=== PATIENT | male | born 1985 | race Two or more races ===

== ENCOUNTER 2018-12-28 15:27 | Emergency (ER) | payer OTHER ==
[~2018-12-28] VITALS: Ht 175.3 cm; Wt 99.8 kg
== END 2018-12-28 17:04 | disposition home or self-care (01) ==
LOC: ER 15:27
DX: S81.822A Laceration with foreign body, left lower leg, initial encounter (principal); W45.8XXA Other foreign body or object entering through skin, initial encounter; Y93.89 Activity, other specified; Y92.832 Beach as the place of occurrence of the external cause; Y99.8 Other external cause status

== ENCOUNTER 2019-01-07 07:51 | Emergency (ER) | payer OTHER ==
[~2019-01-07] VITALS: Ht 175.3 cm; Wt 95.3 kg
== END 2019-01-07 10:40 | disposition home or self-care (01) ==
LOC: ER 07:51
DX: Z48.02 Encounter for removal of sutures (principal)